=== PATIENT | female | born 1985 | race Hispanic/Latino ===

== ENCOUNTER → 2018-10-06 | Outpatient (CLI) | payer BC ==
--- NOTE | 2018-10-06 12:04 | Diagnostic Imaging Report ---
EXAM: US ABDOMEN COMPLETE DATE: 10/06/2018 10:29 AM INDICATION: Elevated liver function tests COMPARISON: None TECHNIQUE: Transverse and longitudinal mosqueda scale and color doppler sonographic images of the upper abdomen were obtained. FINDINGS: LIVER 12.4 cm in the right midclavicular line. Diffusely increased echogenicity, normal contour, no masses. SPLEEN 9.8 cm in maximum diameter. Normal echogenicity, no masses. GALLBLADDER No stones, sludge, wall-thickening or pericholecystic fluid. Negative sonographic Fuentes's sign. BILE DUCTS No intra nor extra-hepatic biliary dilation. Common bile duct measures 0.3 cm PANCREAS: Visualized portions are normal. RIGHT KIDNEY: 11.6 cm Echogenicity: Normal Collecting System: No hydronephrosis Stones: None Cyst/Mass: None LEFT KIDNEY: 10.8 cm Echogenicity: Normal Collecting System: No hydronephrosis Stones: None Cyst/Mass: None VESSELS: Aorta: Visualized portions are within normal size limits Inferior Vena Cava: Visualized portions are normal Main Portal Vein: 0.8 cm, normal size with hepatopetal flow. FREE FLUID: None IMPRESSION: Increased hepatic parenchymal echogenicity compatible with steatosis. Otherwise unremarkable abdominal ultrasound. Signed by: Dr. Kemar Mckeon M.D. on 10/06/2018 12:01 PM
== END ==
LOC: US 10:22
PROVIDERS: ATTEND Family Medicine
DX: R94.5 Abnormal results of liver function studies (principal)
CPT/HCPCS: 76700